=== PATIENT | female | born 1945 | race Caucasian/White ===

== ENCOUNTER → 2018-11-22 | Outpatient (CLI) | payer MEDICARE, BC ==
--- NOTE | 2018-11-22 10:17 | REP ---
PA and lateral chest: There are no comparisons. There is marked cardiomegaly. There is a single sternotomy wire. There are mediastinal surgical clips. There is a coronary artery endovascular stent. There are no infiltrates. The lateral view the posterior sulci are slightly effaced suggestive of small bilateral pleural effusions. Impression: Marked cardiomegaly. Questionable small bilateral pleural effusions. Other findings as described. Electronically Signed by Zachariah Prado MD 11/22/2018 10:09 A
== END ==
LOC: M SMT 09:35
PROVIDERS: ATTEND Internal Medicine Pulmonary Disease
DX: I51.7 Cardiomegaly (principal)

== ENCOUNTER → 2019-02-18 | Outpatient (CLI) | payer MEDICARE, BC ==
--- NOTE | 2019-02-23 09:32 | SLEEPCENT ---
DATE OF PROCEDURE: 02/17/2019 ORDERED BY: Dr. Jose Mead Nocturnal polysomnography was performed for evaluation of sleep physiology in this patient with a history of excessive somnolence, snoring and observed apneas who has multiple comorbid medical conditions, including diabetes, coronary artery disease and hypertension. 6 hours and 49 minutes of data were reviewed. There were 334.5 minutes of sleep identified. Sleep latency was short at 1.5 minutes. Rapid eye movement (REM) sleep was not achieved. Overall sleep architecture showed poor progression with fragmentation. Sleep efficiency was 83.3% but at no time did the patient display sleep stage stages greater than 2. Overall sleep efficiency was 83.3%. The patient's electrocardiogram showed supraventricular rhythm with an average heart rate of 68 beats per minute. Electroencephalogram (EEG) showed coarsening in background, otherwise normal waveforms for awake and sleep. There were 40 respiratory events identified of 10 seconds in duration or greater for an apnea-hypopnea index of 7.2. The events were obstructive, not exclusive to sleep stage nor body posture. Arousals from respiratory events occurred 2.2 times per hour and oxygen desaturations were seen into the low 80s. Shortly after sleep onset, the patient awoke and based on prior history of oxygen use and low oxygen saturation, oxygen was supplied via nasal cannula at 2 liters per minute. Significant reduction in the obstructive events was seen thereafter, however, sleep progression was not seen. There was significant activity in the limb leads as well. The limb movement arousal index was 13.1. IMPRESSION: 1. Obstructive sleep apnea syndrome (G47.33). 2. Periodic limb movement disorder (G47.61). RECOMMENDATIONS: Given the apnea-hypopnea index of 7.2 and the lack of sleep progression, the patient should be encouraged to return to sleep disorder center for pressure therapy. Pending response to pressure therapy, interventions to reduce the frequency of arousals from limb activity may also be needed.
== END ==
LOC: M SLEEP 18:51
PROVIDERS: ATTEND Internal Medicine Pulmonary Disease
DX: G47.33 Obstructive sleep apnea (adult) (pediatric) (principal); G47.61 Periodic limb movement disorder

== ENCOUNTER → 2019-03-16 | Outpatient (CLI) | payer MEDICARE, BC ==
--- NOTE | 2019-03-19 14:20 | SLEEPCENT ---
DATE OF STUDY: 03/16/2019 ORDERED BY: Dr. Mead Nocturnal polysomnography was performed for the titration of pressure therapy in this patient with obstructive sleep apnea syndrome and periodic limb movement disorder, who has an apnea-hypopnea index of 7.2. For testing, a [employer]Med AirFit F20 full face mask of medium size was used, 4 cm of water pressure were applied to the circuit, and the lights were extinguished. 8 hours and 36 minutes of data were reviewed. There are 458.5 minutes of sleep identified. Sleep latency was short at 10 minutes. Rapid eye movement (REM) latency was prolonged at 460 minutes. Sleep architecture showed poor progression through early portions of the study. There was only one REM cycle late in the test. Overall sleep efficiency was 89.9%. The electrocardiogram showed a sinus rhythm with premature ventricular contractions (PVCs), average heart rate 80 beats per minute. EEG showed some alpha intrusion into non-REM stages. Respiratory events were reasonably palliated with continuous positive airway pressure (CPAP) at a pressure +6. Persistent limb activity was seen over the entire study, and limb movement arousal index on this occasion was 22.4, up from the diagnostic night. IMPRESSION: 1. Obstructive sleep apnea syndrome (G47.33). 2. Periodic limb movement disorder (G47.61). RECOMMENDATIONS: Nightly use of pressure therapy at 6 cm of water is sufficient to address the patient's obstructive respiratory events. Interventions to reduce the frequency of arousal from limb activity may be necessary to further improve the quality of patient's sleep.
== END ==
LOC: M SLEEP 20:00
PROVIDERS: ATTEND Internal Medicine Pulmonary Disease
DX: G47.33 Obstructive sleep apnea (adult) (pediatric) (principal); G47.61 Periodic limb movement disorder